=== PATIENT | female | born 1985 | race Hispanic/Latino ===

== ENCOUNTER 2023-06-25 22:54 | Emergency (ER) | payer OTHER, SELFPAY ==
[2023-06-25] MEDS ORDERED: Morphine 4 MG/ML VIAL ONE (23:59)
== END 2023-06-26 02:21 | disposition home or self-care (01) ==
LOC: CSHERS 22:54
DX: O99.891 Other specified diseases and conditions complicating pregnancy (principal); R10.2 Pelvic and perineal pain; Z3A.01 Less than 8 weeks gestation of pregnancy
CPT/HCPCS: 76801; J2270

== ENCOUNTER 2023-07-06 22:29 | Emergency (ER) | payer BC ==
[2023-07-06 23:14] LABS: #Basophils 0.1 10x3/uL (0.0-0.2); #Eosinphils 0.1 10x3/uL (0.0-0.5); #Monocytes 0.8 10x3/uL (0.0-1.1); #Neutrophils 10.5 10x3/uL (1.5-8.4); %Basophils 0.8 % (0.0-2.0); %Eosinophils 0.8 % (0.0-6.0); %Lymphocytes 10.1 % (18.0-47.0); %Monocytes 6.2 % (0.0-10.0); %Neutrophils 81.1 % (40.0-75.0); Hematocrit 38.9 % (34.9-44.5); Hemoglobin 13.1 g/dL (12.0-15.5); Mean Corpuscular HGB CONC 33.7 g/dL (32.0-36.0); Mean Corpuscular Hemoglobin 30.8 pg (27.0-33.0); Mean Corpuscular Volume 91.5 fl (81.6-98.3); Mean Platelet Volume 9.3 fl (7.4-10.4); Platelet Count 187 10x3/uL (150-450); RBC Distribution Width 13.4 % (11.5-14.5); Red Blood Cell (RBC) Count 4.25 10x6/uL (3.90-5.03)
[2023-07-06 23:16] LABS: BHCG - Serum POSITIVE (NEGATIVE); Pregs Control Background? CLEAR/WHITE (CLR/WHITE); Pregs Control Bar Appear? YES (CONTROL BAR)
[2023-07-06 23:21] LABS: Bilirubin Neg (Negative); Blood, Urine 250 (Negative); Clarity Cloudy (Clear); Glucose, Urine (Dipstick) Normal (Negative); Ketone, Urine 5 mg/dL (Negative); Leukocyte 25 (Negative); Nitrite Negative (Negative); Protein, Urine (Dipstick) 100 mg/dl (Neg-Trace); Specific Gravity, Urine 1.015 (1.005-1.030); Urobilinogen Normal mg/dL (Less than 2)
[2023-07-06 23:22] LABS: ALT (SGPT) 19 U/L (8-55); AST (SGOT) 16 U/L (5-34); Alkaline Phosphatase 53 U/L (40-110); Anion Gap 12 mmol/L (10-20); BUN (Urea Nitrogen) 10 mg/dL (7.0-18.7); Bilirubin, Total 0.3 mg/dL (0.2-1.2); Calc. Creatinine Clearance 0 mL/min (70-130); Calcium 9.1 mg/dL (7.8-10.44); Carbon Dioxide 23 mmol/L (22-29); Chloride 106 mmol/L (98-107); Estimated GFR 110; Glucose 103 mg/dL (70-105); Potassium 3.7 mmol/L (3.5-5.1); Sodium 137 mmol/L (136-145)
[2023-07-06 23:38] LABS: Bacteria/HPF None Seen HPF (None Seen); CAUTI Indications for Culture Pregnancy; RBC/HPF Greater than 50 HPF (0-3); Squamous Epithelial 0-3 HPF (0-3); WBC/HPF 0-3 HPF (0-3)
[2023-07-06 23:41] LABS: Urine Culture Reflex Yes Yes
== END 2023-07-07 01:47 | disposition home or self-care (01) ==
LOC: CSHERS 22:29
DX: O20.8 Other hemorrhage in early pregnancy (principal); Z3A.01 Less than 8 weeks gestation of pregnancy
CPT/HCPCS: 76817; 80053; 81001; 84702; 84703; 85025; 87086

== ENCOUNTER 2024-01-11 09:28 | Day surgery (SDC) | payer OTHER, SELFPAY ==
[2024-01-11 09:45] VITALS: BMI 39.6
[2024-01-11] MEDS ORDERED: Lactated Ringer's 1,000 ML IV SCH (09:45)
[2024-01-11 10:16] LABS: Hematocrit 34.1 % (34.9-44.5); Hemoglobin 11.8 g/dL (12.0-15.5); Mean Corpuscular HGB CONC 34.6 g/dL (32.0-36.0); Mean Corpuscular Hemoglobin 31.6 pg (27.0-33.0); Mean Corpuscular Volume 91.4 fl (81.6-98.3); Mean Platelet Volume 9.3 fl (7.4-10.4); Platelet Count 136 10x3/uL (150-450); RBC Distribution Width 14.6 % (11.5-14.5); Red Blood Cell (RBC) Count 3.73 10x6/uL (3.90-5.03); White Blood Cell (WBC) Count 9.2 10x3/uL (3.5-10.5)
[2024-01-11 10:38] LABS: ALT (SGPT) 13 U/L (8-55); AST (SGOT) 23 U/L (5-34); Alkaline Phosphatase 130 U/L (40-110); Anion Gap 12 mmol/L (10-20); BUN (Urea Nitrogen) 6 mg/dL (7.0-18.7); Bilirubin, Total 0.4 mg/dL (0.2-1.2); Calc. Creatinine Clearance 192 mL/min (70-130); Calcium 8.8 mg/dL (7.8-10.44); Carbon Dioxide 20 mmol/L (22-29); Chloride 110 mmol/L (98-107); Estimated GFR 119; Globulin 3.1 g/dL (2.4-3.5); Glucose 91 mg/dL (70-105); Potassium 3.8 mmol/L (3.5-5.1); Protein, Total 6.1 g/dL (6.0-8.3); Sodium 138 mmol/L (136-145)
[2024-01-11 15:32] LABS: Hemoglobin A1c 5.6 % (4.0-6.0)
== END 2024-01-11 13:30 | disposition home or self-care (01) ==
LOC: CSHLD/OP 09:28
PROVIDERS: ATTEND Family Medicine
DX: Z36.89 Encounter for other specified antenatal screening (principal); O24.419 Gestational diabetes mellitus in pregnancy, unspecified control; Z3A.40 40 weeks gestation of pregnancy
CPT/HCPCS: 36415; 76816; 76819; 80053; 83036; 85027; 96360; 99282

== ENCOUNTER 2024-02-01 10:03 | Inpatient (IN) | payer MEDICAID, OTHER ==
[2024-01-31 13:19] LABS: Hematocrit 36.3 % (34.9-44.5); Hemoglobin 12.4 g/dL (12.0-15.5); Platelet Count 144 10x3/uL (150-450)
[2024-01-31 14:06] LABS: HBsAg Index 0.17 S/CO (0-0.99); Hep B Surf Ag Non-Reactive S/CO (NonReactive)
[2024-01-31 14:07] LABS: Syphilis Antibody Nonreactive (Nonreactive); Syphilis Antibody Index 0.07 S/CO (<1.00 Non-Reactive)
[2024-02-01 11:11] VITALS: BMI 38.4
[2024-02-01] MEDS ORDERED: Moisturizing Cream (Eucerin) 113 GM JAR TOP PRN (11:18)
[2024-02-01] MEDS ORDERED: Promethazine HCl 25 MG/ML VIAL IM PRN ×3 (11:18→16:21)
[2024-02-01] MEDS ORDERED: fentaNYL 50 mcg/mL 1 mL Vial SLOW IVP PRN (11:18)
[2024-02-01] MEDS ORDERED: Naloxone HCl 0.4 mg/ml Vial IVP PRN ×2 (11:18)
[2024-02-01] MEDS ORDERED: Meperidine HCl/PF 25 MG (1 mL) VIAL SLOW IVP PRN (11:18)
[2024-02-01] MEDS ORDERED: Naloxone HCl 0.4 mg/ml Vial IV PRN (11:18)
[2024-02-01] MEDS ORDERED: Ondansetron PF 4 MG/2 ML Vial IVP PRN ×4 (11:18→16:21)
[2024-02-01] MEDS ORDERED: diphenhydrAMINE 50 MG/ML VIAL IVP PRN (11:18)
[2024-02-01] MEDS ORDERED: Communication Order-Pharmacy FS SCH (11:30)
[2024-02-01] MEDS ORDERED: Ketorolac Tromethamine 30 MG (1 mL) VIAL IVP SCH (11:30)
[2024-02-01] MEDS: CEFAZOLIN 2 GM VIAL ONE (11:35)
[2024-02-01] MEDS ORDERED: Oxytocin 30 units/NS 500 ML 500 ML IV SCH ×2 (13:44→16:21)
[2024-02-01] MEDS ORDERED: Carboprost 250 MCG/ML AMP IM PRN (13:44)
[2024-02-01] MEDS ORDERED: Tranexamic Acid 1,000 MG/10 ML VIAL IVP PRN (13:44)
[2024-02-01] MEDS ORDERED: Misoprostol 200 MCG TAB PR PRN (13:44)
[2024-02-01] MEDS ORDERED: CEFAZOLIN 2 GM in Sodium Chloride 0.9% 100 ML IVPB SCH (13:44)
[2024-02-01] MEDS ORDERED: Famotidine/PF 20 mg/2ml Vial SLOW IVP PRN (13:44)
[2024-02-01] MEDS ORDERED: Bicitra 30 ML UDCUP PO PRN (13:44)
[2024-02-01] MEDS ORDERED: Azithromycin 500 MG in Sodium Chloride 0.9% 250 ML 250 ML IVPB SCH (13:44)
[2024-02-01] MEDS ORDERED: Diphenoxylate HCl/Atropine Tablet PO PRN (13:44)
[2024-02-01] MEDS ORDERED: hydrALAZINE 20 MG/ML VIAL SLOW IVP PRN ×2 (13:44→16:21)
[2024-02-01] MEDS ORDERED: Lactated Ringer's 1,000 ML IV SCH (13:44)
[2024-02-01] MEDS ORDERED: Methylergonovine 0.2 MG/ML VIAL IM PRN (13:44)
[2024-02-01] MEDS: Ketorolac Tromethamine 30 MG (1 mL) VIAL IVP PRN (15:30)
[2024-02-01] MEDS ORDERED: Boostrix 0.5 ML (Tdap) VIAL (>/=7 yrs of age) IM ONE (16:21)
[2024-02-01] MEDS ORDERED: Simethicone Chewable 80 MG TAB PO PRN (16:21)
[2024-02-01] MEDS ORDERED: diphenhydrAMINE 25 MG CAP PO PRN (16:21)
[2024-02-01] MEDS ORDERED: Bisacodyl 10 MG SUPP PR PRN (16:21)
[2024-02-01] MEDS: Docusate 100 MG CAP PO SCH (20:24)
[2024-02-01] MEDS: Ferrous Sulfate 325 MG TAB PO SCH (20:26)
[2024-02-01] MEDS: Ketorolac Tromethamine 30 MG (1 mL) VIAL IVP SCH (21:31)
[2024-02-01] MEDS ORDERED: HYDROcodone/Acetaminophen 5/325 mg Tablet PO PRN (23:35)
[2024-02-01] MEDS ORDERED: Meperidine HCl/PF 25 MG (1 mL) VIAL IM PRN (23:35)
[2024-02-02 04:17] LABS: Hematocrit 27.8 % (34.9-44.5); Hemoglobin 9.5 g/dL (12.0-15.5); Mean Corpuscular HGB CONC 34.2 g/dL (32.0-36.0); Mean Corpuscular Hemoglobin 31.5 pg (27.0-33.0); Mean Corpuscular Volume 92.1 fL (81.6-98.3); Mean Platelet Volume 9.5 fL (7.4-10.4); Platelet Count 122 10x3/uL (150-450); RBC Distribution Width 14.1 % (11.5-14.5); Red Blood Cell (RBC) Count 3.02 10x6/uL (3.90-5.03); White Blood Cell (WBC) Count 12.2 10x3/uL (3.5-10.5)
[2024-02-02] MEDS: Dexmedetomidine 200 MCG/2 ML VIAL ONE (07:41)
[2024-02-02] MEDS: Ondansetron PF 4 MG/2 ML Vial ONE (07:41)
[2024-02-02] MEDS: ePHEDrine Sulfate 50 MG/10 ML VIAL ONE (07:41)
[2024-02-02] MEDS: Oxytocin 10 UNITS/ML VIAL ONE (07:41)
[2024-02-02] MEDS: Morphine PF 10 MG/10 ML VIAL ONE (07:41)
[2024-02-02] MEDS: Famotidine/PF 20 mg/2ml Vial ONE (07:41)
[2024-02-02] MEDS: PHENYLEPHRINE-NS 100 MCG/ML 10 ML SYRINGE ONE (07:41)
[2024-02-02] MEDS: Prenatal Vitamin 1 TAB PO SCH (08:24)
[2024-02-02] MEDS: HYDROcodone/Acetaminophen 5/325 mg Tablet PO PRN (14:05)
[2024-02-02] MEDS: Ibuprofen 800 MG TAB PO SCH (16:30)
[2024-02-03] MEDS: Ibuprofen 800 MG TAB PO SCH (00:48)
[2024-02-03 08:04] VITALS: BP 110/62; TEMP 97.7
== END 2024-02-03 12:52 | disposition home or self-care (01) | DRG 787 ==
LOC: CSHLD 10:03 → CSHPP 16:00
PROVIDERS: ADMIT Family Medicine; ATTEND Family Medicine
PROC: 10D00Z1 Extraction of Products of Conception, Low, Open Approach (ICD-10-PCS; principal; 2024-02-01)
DX: O34.211 Maternal care for low transverse scar from previous cesarean delivery (principal); O72.1 Other immediate postpartum hemorrhage; O99.12 Other diseases of the blood and blood-forming organs and certain disorders involving the immune mechanism complicating childbirth; Z3A.39 39 weeks gestation of pregnancy; Z37.0 Single live birth; O24.420 Gestational diabetes mellitus in childbirth, diet controlled; O99.214 Obesity complicating childbirth; E66.01 Morbid (severe) obesity due to excess calories; D69.6 Thrombocytopenia, unspecified
CPT/HCPCS: 36415; 36416; 51702; 85014; 85018; 85027; 85049; 86780; 86850; 86900; 86901; 87340; J1885; J2274; J2405; J2590; S0028